=== PATIENT | male | born 1980 | race Caucasian/White ===

== ENCOUNTER → 2020-10-17 | Outpatient (CLI) | payer OTHER | LOC: RAD 11:31 | DX: R05 Cough (principal); M54.2 Cervicalgia; M54.5 Low back pain | CPT/HCPCS: 71046; 72050; 72072; 72110 ==

== ENCOUNTER 2021-12-27 11:19 | Emergency (ER) | payer OTHER ==
[2021-12-27 12:16] LABS: HEMOGLOBIN 15.9 gm/dl (14.0-17.5); RED BLOOD COUNT 4.91 M/UL (4.20-5.50); WHITE BLOOD COUNT 7.2 K/UL (4.5-11.0)
[2021-12-27 12:38] LABS: BUN/CREATININE RATIO 14 (0-10)
== END 2021-12-27 16:26 | disposition home or self-care (01) ==
LOC: ER1 11:19
PROVIDERS: Nurse Practitioner
DX: R07.89 Other chest pain (principal); I10 Essential (primary) hypertension; E11.9 Type 2 diabetes mellitus without complications; Z88.0 Allergy status to penicillin
CPT/HCPCS: 71045; 80053; 81001; 82550; 82553; 84484; 85025; 85379; 93005; 99285